=== PATIENT | male | born 1995 | race African-American/Black ===

== ENCOUNTER 2021-03-28 10:20 | Emergency (ER) | payer MEDICAID, SELFPAY ==
[2021-03-28 10:52] VITALS: BP 123/74; PULSE 73; RESP 16; TEMP 37.1; O2SAT 100; BMI 23.0
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
[2021-03-28] MEDS: Lidocaine HCl 2 % MPF 5 ML VIAL INFILTRATI (11:32)
== END 2021-03-28 12:09 | disposition home or self-care (01) ==
PROVIDERS: Emergency Provider Emergency Medicine
DX: S61.411A Laceration without foreign body of right hand, initial encounter (principal); W45.8XXA Other foreign body or object entering through skin, initial encounter; Y93.83 Activity, rough housing and horseplay; Y92.019 Unspecified place in single-family (private) house as the place of occurrence of the external cause; Y99.9 Unspecified external cause status
CPT/HCPCS: 12002; 99283

== ENCOUNTER 2022-03-25 12:14 | Emergency (ER) | payer MEDICAID, SELFPAY ==
[2022-03-25 12:18] VITALS: BP 127/70; PULSE 105; O2SAT 100
[2022-03-25 12:57] VITALS: BP 126/78; PULSE 85; RESP 18; TEMP 36.1; O2SAT 99; BMI 22.3
== END 2022-03-25 16:01 | disposition left against medical advice (07) ==
PROVIDERS: Emergency Provider Emergency Medicine
DX: S00.91XA Abrasion of unspecified part of head, initial encounter (principal); N50.811 Right testicular pain; M79.641 Pain in right hand; Y04.2XXA Assault by strike against or bumped into by another person, initial encounter; Y93.9 Activity, unspecified; Y92.9 Unspecified place or not applicable; Y99.9 Unspecified external cause status
CPT/HCPCS: 99281

== ENCOUNTER 2022-03-26 10:57 | Emergency (ER) | payer MEDICAID, SELFPAY ==
--- NOTE | ~2022-03-26 | XR_ITS ---
EXAMINATION: XR FINGER, RIGHT CLINICAL INFORMATION: Pain and numbness third digit COMPARISON: None TECHNIQUE: Single view right hand with 2 additional of the right third digit. FINDINGS: There is been prior metacarpal surgery with plate and screw devices overlying the mid fourth and fifth metacarpals. The bones and soft tissues are otherwise normal. No fracture. Alignment is anatomic. Joint spaces are maintained. XR/XR finger RT min 2V IMPRESSION: No acute abnormality seen. Specifically, the third digit appears normal.
--- NOTE | ~2022-03-26 | US_ITS ---
EXAMINATION: US SCROTUM CLINICAL INFORMATION: Painful testes. COMPARISON: CT abdomen pelvis 02/17/2019 TECHNIQUE: A sonogram of the scrotum was performed assessing walker-scale appearance and color Doppler flow. Spectral Doppler analysis of the arterial and venous flow were performed in the testes bilaterally. FINDINGS: RIGHT: Right testicle measures 5.0 x 2.5 x 3.4 cm, volume 22.2 mL. No focal testicular parenchymal lesions are visualized. Spectral Doppler analysis of the arterial and venous flow is normal in the right testis. Right epididymal head is normal in size. No right hydrocele or varicocele is seen. Right epididymal Doppler flow is normal. LEFT: Left testicle measures 5.3 x 2.8 x 2.9 cm, volume 22.5 mL. No focal testicular parenchymal lesions are visualized. Spectral Doppler analysis of the arterial and venous flow is normal in the left testis. Left epididymal head is normal in size and contains 2 tiny cysts. An epididymal appendix is present. There is a tiny left hydrocele present but no varicocele is seen. Left epididymal Doppler flow is normal. US/US scrotum IMPRESSION: Normal-appearing exam
--- NOTE | ~2022-03-26 | US_ITS ---
EXAMINATION: US SCROTUM CLINICAL INFORMATION: Painful testes. COMPARISON: CT abdomen pelvis 02/17/2019 TECHNIQUE: A sonogram of the scrotum was performed assessing walker-scale appearance and color Doppler flow. Spectral Doppler analysis of the arterial and venous flow were performed in the testes bilaterally. FINDINGS: RIGHT: Right testicle measures 5.0 x 2.5 x 3.4 cm, volume 22.2 mL. No focal testicular parenchymal lesions are visualized. Spectral Doppler analysis of the arterial and venous flow is normal in the right testis. Right epididymal head is normal in size. No right hydrocele or varicocele is seen. Right epididymal Doppler flow is normal. LEFT: Left testicle measures 5.3 x 2.8 x 2.9 cm, volume 22.5 mL. No focal testicular parenchymal lesions are visualized. Spectral Doppler analysis of the arterial and venous flow is normal in the left testis. Left epididymal head is normal in size and contains 2 tiny cysts. An epididymal appendix is present. There is a tiny left hydrocele present but no varicocele is seen. Left epididymal Doppler flow is normal. US/US scrotum doppler IMPRESSION: Normal-appearing exam
[2022-03-26 11:22] VITALS: BP 127/84; PULSE 86; RESP 18; TEMP 36.8; O2SAT 98; BMI 22.3
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
== END 2022-03-26 13:56 | disposition home or self-care (01) ==
LOC: HO.ED 13:55
PROVIDERS: Emergency Provider Emergency Medicine
DX: S30.22XA Contusion of scrotum and testes, initial encounter (principal); S60.031A Contusion of right middle finger without damage to nail, initial encounter; Y04.0XXA Assault by unarmed brawl or fight, initial encounter; Y93.9 Activity, unspecified; Y92.9 Unspecified place or not applicable; Y99.9 Unspecified external cause status
CPT/HCPCS: 73140; 76870; 93975; 99284